=== PATIENT | female | born 1955 | race Caucasian/White ===

== ENCOUNTER → 2017-03-18 | Outpatient (CLI) | payer BC ==
[~2017-03-18] MED LIST: REGADENOSON 0.4 MG/5 ML DISP.SYRIN. IV ONE
--- NOTE | 2017-03-18 12:24 | PCVCIMAG ---
APPROVED REPORT Exam: Nuclear Stress Test Indication: Abnormal EKG, Palpitations Patient Location: Out-Patient Stress Nurse: Lillie Johns RN, Minerva Hirsch RN NC Tech:Tamela Raineytali [facility] Ht: 5 ft 7 in Wt: 180 lbs BSA: 1.93 m2 HR: 61 bpm BP: 147/84 mmHg BMI: 28.1 Rhythm: SR, First degree AV Block Medical History Medical History: HTN Medications: ASA, Atorvastatin, Carvedilol, Klonopin, Losartan, Omeprazole Allergies: Sulfa, Vilazodone Pretest Chest Pain Characteristics: No chest pain Exercise History: Physically active Meds Held (24 hrs): Carvedilol Stress Test Details Stress Test: Pharmacologic stress testing performed using 0.4 mg of regadenoson per 5 mL given IV over 10 seconds. Reason for pharmacologic stress test: physical limitation. HR Resting HR: 61 bpmMax Heart Rate (APMHR): 158 bpm Max HR Achieved: 102 bpmTarget HR (85% APMHR): 134 bpm % of APMHR: 64 Recovery HR: 109 bpm BP Resting BP: 147/84 mmHg Max BP: 132/76 mmHg Recovery BP: 143/77 mmHg ECG Resting ECG: Sinus Rhythm,, 1st degree AV block Stress ECG: Sinus Rhythm ST Change: Non-ischemic Arrhythmia: None Recovery ECG: Sinus Rhythm Clinical Reason for Termination: Completed protocol Stress Symptoms: Dyspnea, Light-Headed Symptoms resolved during recovery. NM EXAM: Myocardial Perfusion REST/STRESS Imaging Protocol: Rest Tc-99m/Stress Tc-99m 1 day Resting Data Rest SPECT myocardial perfusion imaging was performed in supine position 45 minutes following the intravenous injection of 10.9 mCi of Tc-99m Sestamibi. Time of rest injection: 45 Date: 03/18/2017 Pharmacologic Stress Pharmacologic stress test was performed by injecting Regadenoson 0.4 mg IV push followed by the intravenous injection of 33.5 mCi of Tc-99m Sestamibi. Time of stress injection: 5 Date: 03/18/2017 Administration Route: IV Administration Site: Right AC Gated Stress SPECT was performed 45 minutes after stress injection. The images were gated to evaluate regional wall motion and calculate left ventricular ejection fraction. Study Quality Study: Good Study Data Post stress, the left ventricular ejection was 69%.. SSS: 1 SRS: 0 SDS: 1 TID = 0.94. Perfusion Normal perfusion on both the stress and rest images. Wall Motion Normal left ventricular wall motion. Clinical Findings: Nondiagnostic EKG Findings: Nonischemic Nuclear Conclusion This study is of low probability for inducible ischemia or prior infarct. Normal global and segmental LV systolic function.
== END | disposition home or self-care (01) ==
LOC: PCVCIMAG 08:25
PROVIDERS: ATTEND Nuclear Medicine Nuclear Cardiology
DX: I44.0 Atrioventricular block, first degree (principal); R94.31 Abnormal electrocardiogram [ECG] [EKG]; I10 Essential (primary) hypertension; I49.3 Ventricular premature depolarization
CPT/HCPCS: 78452; 93017; A9500; J2785